=== PATIENT | female | born 1950 | race African-American/Black ===

== ENCOUNTER 2017-06-17 03:57 | Emergency (ER) | payer OTHER, MEDICAID ==
[~2017-06-17] VITALS: Ht 167.6 cm; Wt 69.0 kg
[~2017-06-17 03:57] MED LIST: FURO-151 PO; LISI-3 PO; QUET100T PO; RISP2TAB22 PO
[2017-06-17] MEDS ORDERED: TETANUS, DIPHTHERIA, PERTUSSIS VAC/PF 0.5ML (>7YR OLD) IM ONE (07:00)
[2017-06-17] MEDS ORDERED: ACETAMINOPHEN 325MG TABLET PO ONE (07:00)
[2017-06-17] MEDS ORDERED: LIDOCAINE HCL/EPINEPHRINE 1%-EPI 1:100,000 20 ML VIAL INFIL ONE (07:00)
[2017-06-17] MEDS ORDERED: LIDOCAINE HCL 4% CREAM 76GM TUBE TP STA (07:41)
[2017-06-17 10:20] VITALS: BP 180/91
== END 2017-06-17 10:40 | disposition home or self-care (01) ==
LOC: ER 03:57
DX: M25.512 Pain in left shoulder (principal); M25.511 Pain in right shoulder; M79.642 Pain in left hand; I10 Essential (primary) hypertension; Z88.0 Allergy status to penicillin; W18.49XA Other slipping, tripping and stumbling without falling, initial encounter; Y93.01 Activity, walking, marching and hiking; Y99.8 Other external cause status; Y92.89 Other specified places as the place of occurrence of the external cause; M25.551 Pain in right hip
CPT/HCPCS: 73030; 73130; 90471; 90715; 99284; J3490

== ENCOUNTER 2020-05-30 18:26 | Emergency (ER) | payer MEDICARE, MEDICAID ==
[~2020-05-30] VITALS: Ht 170.2 cm; Wt 77.0 kg
[2020-05-30 19:43] VITALS: BP 142/85
[2020-05-30] MEDS ORDERED: ACETAMINOPHEN 325MG TABLET PO ONE (21:00)
== END 2020-05-30 21:35 | disposition home or self-care (01) ==
LOC: ER 18:26
DX: R07.89 Other chest pain (principal); W18.39XA Other fall on same level, initial encounter; Y93.89 Activity, other specified; Y92.89 Other specified places as the place of occurrence of the external cause; Y99.8 Other external cause status; F32.9 Major depressive disorder, single episode, unspecified; I10 Essential (primary) hypertension; Z79.899 Other long term (current) drug therapy
CPT/HCPCS: 71045; 93005; 99283